=== PATIENT | male | born 2005 | race Caucasian/White ===

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

== ENCOUNTER 2023-06-12 13:59 | Emergency (ER) | payer OTHER ==
[~2023-06-12] VITALS: Ht 188 cm; Wt 113.4 kg
[2023-06-12 14:39] VITALS: BP 126/71
== END 2023-06-12 14:44 | disposition home or self-care (01) ==
LOC: ER 13:59
DX: L03.011 Cellulitis of right finger (principal); F17.200 Nicotine dependence, unspecified, uncomplicated
CPT/HCPCS: 99283